=== PATIENT | female | born 1930 | race Caucasian/White ===

== ENCOUNTER 2017-11-11 14:22 | Emergency (ER) | payer OTHER ==
[2017-11-11] MEDS ORDERED: PHENYLEPHRINE 0.5% NOSE 15ML NAS ONE (14:59)
--- NOTE | 2017-11-11 16:03 | EDPHYS ---
Physician Documentation [facility] Name: Tonja Rodrigues Age: 86 yrs Sex: Female : 1930 Arrival Date: 11/11/2017 Time: 14:24 Bed 14 Private MD: Claudio Glasgow E ED Physician Vince Pires HPI: 11/11 15:10 This 86 yrs old Female presents to ER via Wheelchair with complaints of Nose kb Bleed. 15:10 The patient presents with a nose bleed, occurred from an unknown cause, that is kb continuous small amount bright red, causative factors include: aspirin therapy, plavix therapy. Onset: The symptoms/episode began/occurred at 11:00. Modifying factors: The symptoms are alleviated by nothing. the symptoms are aggravated by nothing. Associated signs and symptoms: Loss of consciousness: the patient experienced no loss of consciousness, Pertinent positives: bleeding. Severity of symptoms: At their worst the symptoms were moderate in the emergency department the symptoms are unchanged. The patient has experienced similar episodes in the past, a few times. The patient has not recently seen a physician. Spontaneous nose bleed (right nare) began at 1100 today.. Historical: - Allergies: 14:35 Latex, Natural Rubber; aa5 - PMHx: 14:35 CHF; CVA; Myocardial infarction; aa5 - PSHx: 14:35 Cholecystectomy; aa5 - Immunization history:: Adult Immunizations not up to date. - Social history:: Smoking status: Patient/guardian denies using tobacco. - Ebola Screening: : No symptoms or risks identified at this time. ROS: 14:59 Constitutional: Negative for fever, chills, and weight loss, Cardiovascular: Negative kb for chest pain, palpitations, and edema, Respiratory: Negative for shortness of breath, cough, wheezing, and pleuritic chest pain, Abdomen/GI: Negative for abdominal pain, nausea, vomiting, diarrhea, and constipation, Back: Negative for injury and pain, : Negative for injury, bleeding, discharge, and swelling, MS/Extremity: Negative for injury and deformity, Skin: Negative for injury, rash, and discoloration, Neuro: Negative for headache, weakness, numbness, tingling, and seizure. 14:59 ENT: Positive for nose bleed. Exam: 14:59 Constitutional: This is a well developed, well nourished patient who is awake, alert, kb and in no acute distress. Head/Face: Normocephalic, atraumatic. Neck: Trachea midline, no thyromegaly or masses palpated, and no cervical lymphadenopathy. Supple, full range of motion without nuchal rigidity, or vertebral point tenderness. No Meningismus. Chest/axilla: Normal chest wall appearance and motion. Nontender with no deformity. No lesions are appreciated. Cardiovascular: Regular rate and rhythm with a normal S1 and S2. No gallops, murmurs, or rubs. Normal PMI, no JVD. No pulse deficits. Respiratory: Lungs have equal breath sounds bilaterally, clear to auscultation and percussion. No rales, rhonchi or wheezes noted. No increased work of breathing, no retractions or nasal flaring. Abdomen/GI: Soft, non-tender, with normal bowel sounds. No distension or tympany. No guarding or rebound. No evidence of tenderness throughout. Back: No spinal tenderness. No costovertebral tenderness. Full range of motion. Skin: Warm, dry with normal turgor. Normal color with no rashes, no lesions, and no evidence of cellulitis. MS/ Extremity: Pulses equal, no cyanosis. Neurovascular intact. Full, normal range of motion. Neuro: Awake and alert, GCS 15, oriented to person, place, time, and situation. Cranial nerves II-XII grossly intact. Motor strength 5/5 in all extremities. Sensory grossly intact. Cerebellar exam normal. Normal gait. 14:59 ENT: Nose: bleeding, is seen from the right nare, and is minimal, clotted blood, in right nare. Vital Signs: 14:35 BP 119 / 82; Pulse 76; Resp 18 S; Temp 98.8(TE); Pulse Ox 97% on R/A; Weight 56.7 kg aa5 (R); Pain 0/10; 16:07 BP 121 / 78; Pulse 79; Resp 18; Pulse Ox 99% on R/A; aj MDM: 14:49 Patient medically screened. kb 15:10 Data reviewed: vital signs, nurses notes. Data interpreted: Pulse oximetry: on room air kb is 97 %. Interpretation: normal. ED course: gauze soaked with neosynephrine placed in right nostril. 16:01 Counseling: I had a detailed discussion with the patient and/or guardian regarding: the kb historical points, exam findings, and any diagnostic results supporting the discharge/admit diagnosis, the need for outpatient follow up, an ENT specialist, to return to the emergency department if symptoms worsen or persist or if there are any questions or concerns that arise at home. ED course: bleeding resolved. Pt states she is ready to go home. Family and pt educated on nosebleed precautions and need for follow up with ENT. Administered Medications: 14:56 Drug: Ruslan-Synephrine Thomson 0.5 % 2 sprays Route: Intranasal; Site: right nare; aj 16:08 Follow up: Response: Marked relief of symptoms aj Disposition: 11/12 07:06 Co-signature as Attending Physician, Vince Pires MD I agree with the assessment and jaydon plan of care. Disposition: 11/11/17 16:02 Discharged to Home. Impression: Epistaxis. - Condition is Stable. - Discharge Instructions: Nosebleed, [id number]. - Medication Reconciliation Form, Thank You Letter, Antibiotic Education, Prescription Opioid Use form. - Follow up: Emergency Department; When: As needed; Reason: Worsening of condition. Follow up: Private Physician; When: 2 - 3 days; Reason: Recheck today's complaints, Continuance of care, Re-evaluation by your physician. Signatures: Amie Gavin FNP-C FNP-Valeria Pineda, RN Vince Faulkner MD MD cha Calderon, Audri, RN RN aa5 Corrections: (The following items were deleted from the chart) 11/11 16:08 16:02 11/11/2017 16:02 Discharged to Home. Impression: Epistaxis. Condition is Stable. aj Forms are Medication Reconciliation Form, Thank You Letter, Antibiotic Education, Prescription Opioid Use. Follow up: Emergency Department; When: As needed; Reason: Worsening of condition. Follow up: Private Physician; When: 2 - 3 days; Reason: Recheck today's complaints, Continuance of care, Re-evaluation by your physician. kb
--- NOTE | 2017-11-11 16:03 | ER ---
Nurse's Notes [facility] Name: Tonja Rodrigues Age: 86 yrs Sex: Female : 1930 Arrival Date: 11/11/2017 Time: 14:24 Bed 14 Private MD: Claudio Glasgow E Diagnosis: Epistaxis Presentation: 11/11 14:33 Presenting complaint: Significant other states: "her nose started bleeding today around aa5 11am". Pt reports she takes ASA and Plavix daily. Transition of care: patient was not received from another setting of care. Onset of symptoms was November 11, 2017. Risk Assessment: Do you want to hurt yourself or someone else? Patient reports no desire to harm self or others. Initial Sepsis Screen: Does the patient meet any 2 criteria? No. Patient's initial sepsis screen is negative. Does the patient have a suspected source of infection? No. Patient's initial sepsis screen is negative. Care prior to arrival: None. 14:33 Method Of Arrival: Wheelchair aa5 14:33 Acuity: MARTHA 3 aa5 Historical: - Allergies: 14:35 Latex, Natural Rubber; aa5 - PMHx: 14:35 CHF; CVA; Myocardial infarction; aa5 - PSHx: 14:35 Cholecystectomy; aa5 - Immunization history:: Adult Immunizations not up to date. - Social history:: Smoking status: Patient/guardian denies using tobacco. - Ebola Screening: : No symptoms or risks identified at this time. Screenin:45 Abuse screen: Denies threats or abuse. Denies injuries from another. Nutritional aj screening: No deficits noted. Tuberculosis screening: No symptoms or risk factors identified. Fall Risk None identified. Assessment: 14:45 General: Appears in no apparent distress. comfortable, Behavior is calm, cooperative, aj appropriate for age. Pain: Denies pain. Neuro: Level of Consciousness is awake, alert, obeys commands, Oriented to person, place, time, situation, Appropriate for age. Respiratory: Airway is patent Respiratory effort is even, unlabored, Respiratory pattern is regular, symmetrical. EENT: Reports nasal discharge that is bloody. Derm: Skin is intact, is healthy with good turgor, Skin is pink, warm \\T\\ dry. normal. 14:46 Reassessment: Nose clamp placed on patient. aj Vital Signs: 14:35 BP 119 / 82; Pulse 76; Resp 18 S; Temp 98.8(TE); Pulse Ox 97% on R/A; Weight 56.7 kg aa5 (R); Pain 0/10; 16:07 BP 121 / 78; Pulse 79; Resp 18; Pulse Ox 99% on R/A; aj ED Course: 14:24 Patient arrived in ED. rg4 14:25 Claudio Glasgow MD is Private Physician. rg4 14:34 Triage completed. aa5 14:35 Arm band placed on. aa5 14:44 Valeria Mercer, RN is Primary Nurse. aj 14:45 Patient has correct armband on for positive identification. aj 14:49 [facility]C [facility]. kb 14:49 Vince Pires MD is Attending Physician. kb 16:07 No provider procedures requiring assistance completed. Patient did not have IV access aj during this emergency room visit. Administered Medications: 14:56 Drug: Ruslan-Synephrine [place] 0.5 % 2 sprays Route: Intranasal; Site: right nare; aj 16:08 Follow up: Response: Marked relief of symptoms aj Outcome: 16:02 Discharge ordered by . kb 16:07 Discharged to home via wheelchair, with family. aj 16:07 Condition: good 16:07 Discharge instructions given to patient, family, Instructed on discharge instructions, follow up and referral plans. Demonstrated understanding of instructions, follow-up care. 16:08 Patient left the ED. aj Signatures: Amie Gavin FNP-C FNP-Valeria Pineda RN RN aj Calderon, Audri, RN RN aa5 Garcia, Rubi rg4
[2017-11-11 16:14] VITALS: TEMP 98.8
[2017-11-11 16:15] VITALS: BP 121/78; O2SAT 99
== END 2017-11-11 16:08 | disposition home or self-care (01) ==
LOC: ER 14:22
DX: R04.0 Epistaxis (principal); I25.2 Old myocardial infarction; Z79.01 Long term (current) use of anticoagulants; Z79.82 Long term (current) use of aspirin; Z86.73 Personal history of transient ischemic attack (TIA), and cerebral infarction without residual deficits; Z91.040 Latex allergy status; Z91.048 Other nonmedicinal substance allergy status
CPT/HCPCS: 99283